=== PATIENT | female | born 1960 | race Caucasian/White ===

== ENCOUNTER 2020-11-16 13:21 | Outpatient (CLI) | payer BC ==
--- NOTE | 2020-11-16 14:01 | XRAY Report ---
PROCEDURE: Shoulder 3 View LT INDICATIONS: LEFT SHOULDER PAIN TECHNIQUE: 3 views of the shoulder were acquired. COMPARISON: None. FINDINGS: Bones: No fractures or dislocations. Scattered subchondral sclerosis and spurring. No joint space n arrowing No suspicious bony lesions. Visualized ribs appear intact. Soft tissues: No suspicious soft tissue calcifications. Incidentally noted are linear densities proj ecting at the lower hemithorax, likely etiology and may be external to the patient. IMPRESSION: Minimal degenerative changes. If the patient's pain or other symptoms persist, consider further evalu ation with MRI. Reviewed by: Rudolph Nicole MD on 11/16/2020 2:00 PM PST Approved by: Rudolph Nicole MD on 11/16/2020 2:00 PM PST Station ID: [id number]
== END 2020-11-16 13:22 | disposition home or self-care (01) ==
LOC: DI.S 13:21
PROVIDERS: ATTEND Physician Assistant Medical
DX: M25.512 Pain in left shoulder (principal)

== ENCOUNTER 2021-01-06 09:37 | Outpatient (CLI) | payer BC ==
--- NOTE | 2021-01-11 08:52 | Mammography Report ---
BILATERAL DIGITAL SCREENING MAMMOGRAM 3D/2D WITH EXAGGERATED CC: 01/06/2021 CLINICAL: Routine screening. Comparison is made to exams dated: 01/17/2019 mammogram, 10/27/2017 mammogram, 09/16/2016 mammogram, an d 09/13/2016 mammogram - [facility]. The tissue of both breasts is predominantly fatty. Reporting delay due to awaiting outside images for comparison. No significant masses, calcifications, or other findings are seen in either breast. There has been no significant interval change. IMPRESSION: NEGATIVE There is no mammographic evidence of malignancy. A 1 year screening mammogram is recommended. This exam was interpreted at Station ID: [id number]. NOTE: For mammograms, a report in lay terms will be sent to the patient. Approximately 15% of breast malignancies will not be visualized mammographically. In the management of a palpable breast mass, a negative mammogram must not discourage biopsy of a clinically suspicious lesion. Electronically Signed By: Luis Sher acr/penrad:01/07/2021 10:05:38 ACR BI-RADS Category 1: Negative 3341F PARENCHYMAL PATTERN: (F) - The breast(s) demonstrate(s) diffuse fatty replacement. BI-RADS CATEGORY: (1) - 1 RECOMMENDATION: (ANNUAL) - Recommend routine annual screening mammography. [id number] 1 year screening LATERALITY: (B)
== END 2021-01-06 09:38 | disposition home or self-care (01) ==
LOC: DI.S 09:37
PROVIDERS: ATTEND Internal Medicine
DX: Z12.31 Encounter for screening mammogram for malignant neoplasm of breast (principal)

== ENCOUNTER 2021-02-13 08:00 | Outpatient (CLI) | payer BC ==
--- NOTE | 2021-02-13 10:22 | XRAY Report ---
PROCEDURE: Finger(s) RT INDICATIONS: 5TH DIGIT PAIN RIGHT HAND TECHNIQUE: AP hand, 2 views of the fifth finger(s) acquired. COMPARISON: None FINDINGS: Bones: No acute fractures or dislocations. Chronic appearing deformity involving ulnar and dorsal as pect of fifth proximal phalangeal head and adjacent fifth middle phalangeal base likely represent old healed injury. No suspicious bony lesions. Osteoarthritic changes are noted in fifth PIP and DIP lv ints. No gross bony erosive changes are seen. Soft tissues: No suspicious soft tissue calcifications. Mild soft tissue swelling around the fifth PIP joint is seen. IMPRESSION: 1. Suggestion of old healed injury involving ulnar and dorsal aspect of fifth PIP joint as above. No acute fifth finger fracture or dislocation. 2. Fifth PIP and DIP joint osteoarthritis. Reviewed by: Isidro Leija MD on 02/13/2021 10:21 AM PDT Approved by: Isidro Leija MD on 02/13/2021 10:21 AM PDT Station ID: [id number]
== END 2021-02-13 23:59 | disposition home or self-care (01) ==
LOC: DI.S 08:00
PROVIDERS: ATTEND Physician Assistant Medical
DX: M19.041 Primary osteoarthritis, right hand (principal)

== ENCOUNTER 2021-02-13 15:39 | Emergency (ER) | payer BC ==
--- NOTE | 2021-02-13 16:12 | ED Physician Documentation ---
PD HPI LOWER EXT INJURY - Stated complaint Stated Complaint: RT LEG LAC - Chief complaint Chief Complaint: Laceration - History obtained from History obtained from: Patient - History of Present Illness PD HPI LOW EXT INJURY LOCATION: Right, Lower leg Type of injury: Laceration Timing - onset: How many hours ago (1) Timing - duration: Hours (1) Timing - details: Gradual onset Pain level max: 2 Pain level now: 1 Improved by: Rest Worsened by: Moving, Palpating Contributing factors: No: Anticoagulated Recently seen: Not recently seen - Additional information Additional information: Patient states she was carrying pruning lópez today when she accidentally cut her right lower leg. Not on blood thinners. Unknown last tetanus Review of Systems Constitutional: denies: Fever PD PAST MEDICAL HISTORY - Past Medical History Past Medical History: Yes Psych: Depression - Past Surgical History Past Surgical History: No - Present Medications Home Medications: Ambulatory Orders Medication Instructions Recorded Confirmed Atorvastatin Calcium 40 mg PO DAILY 02/13/21 02/13/21 Bupropion HCl [Wellbutrin Xl] 300 mg PO DAILY 02/13/21 02/13/21 Escitalopram [Lexapro] 10 mg PO DAILY PM 02/13/21 02/13/21 - Allergies Allergies/Adverse Reactions: Allergies Allergy/AdvReac Type Severity Reaction Status Date / Time No Known Drug Allergies Allergy Verified 02/13/21 15:47 - Social History Does the pt smoke?: No Smoking Status: Never smoker Does the pt drink ETOH?: No Does the pt have substance abuse?: No - Immunizations Immunizations are current?: No - POLST Patient has POLST: No PD ED PE NORMAL - Vitals Vital signs reviewed: Yes - General General: Alert and oriented X 3, No acute distress - Derm Derm: Warm and dry - Neuro Neuro: Alert and oriented X 3 - Psych Psych: Normal mood, Normal affect PD ED PE EXPANDED - Extremities DANA LE visual: 1 - laceration (2cm, linear, well approximated. Subcutaneous. NVI) Results - Vitals Vitals: Vital Signs - 24 hr 02/13/21 02/13/21 15:41 17:20 Temperature 36.7 C 36.8 C Heart Rate 92 79 Respiratory 18 16 Rate Blood Pressure 136/74 H 157/108 H O2 Saturation 99 98 Oxygen O2 Source Room air Procedures - Laceration (location) RLE Length in cm: 2 Wound type: Linear, Superficial, Clean Neurovascular status: Sensory intact, Motor intact, Vascular intact Wound preparation: Irrigated copiously NS Skin layer closure: Dermabond, Steri strips Other: Patient tolerated well, No complications, Neurovascular intact, Tetanus booster given PD MEDICAL DECISION MAKING - ED course Complexity details: considered differential, d/w patient ED course: 60-year-old female with a right lower extremity laceration. Discussed various closure options including sutures, will or Steri-Strips and Dermabond. It is in the low tension area and is well approximated, therefore Dermabond and Steri-Strips were chosen by the patient. Benzoin was applied, then the Steri- Strips, then the Dermabond. Tdap given. Warnings of infection and instructions on wound care given at bedside. Also counseled on how to minimize scarring. Patient counseled regarding signs and symptoms for which I believe and urgent re-evaluation would be necessary. Patient with good understanding of and agreement to plan and is comfortable going home at this time This document was made in part using voice recognition software. While efforts are made to proofread this document, sound alike and grammatical errors may occur. Departure - Departure Disposition: 01 Home, Self Care Clinical Impression: Laceration Condition: Good Instructions: ED Laceration Ext Skin Glue Follow-Up: Luiza Ambriz MD [Primary Care Provider] - Comments: You and Steri-Strips should fall off on their own in about 4 to 5 days. Return if you worsen. This should heal well. Return for redness, swelling or signs of infection. Discharge Date/Time: 02/13/21 17:25
[2021-02-13] MEDS ORDERED: TETANUS/DIPHTHERIA/PERTUSSIS 0.5 ML SYRINGE IM ONE (17:02)
[2021-02-13 17:30] VITALS: BP 157/108
== END 2021-02-13 17:25 | disposition home or self-care (01) ==
LOC: ED 15:39
DX: S81.811A Laceration without foreign body, right lower leg, initial encounter (principal); W27.1XXA Contact with garden tool, initial encounter; M25.541 Pain in joints of right hand; M19.041 Primary osteoarthritis, right hand; Z23 Encounter for immunization
CPT/HCPCS: 12001; 90471; 99282; 99283